=== PATIENT | female | born 1950 | race Caucasian/White ===

== ENCOUNTER → 2021-12-02 16:35 | Outpatient (CLI) | payer BC, SELFPAY ==
--- NOTE | ~2021-12-02 | MR_ITS ---
EXAMINATION: MR shoulder RT wo con DATE: 12/02/2021 17:17 INDICATION: Right shoulder pain TECHNIQUE: Magnetic resonance imaging (MRI) of the right shoulder was performed without intravenous c ontrast. Sequences included axial PD-weighted FS FSE, coronal oblique PD-weighted FS FSE, coronal obl ique T2-weighted FS FSE, sagittal PD-weighted FS FSE, and sagittal T1-weighted SE. COMPARISON: None. FINDINGS: Coracoacromial arch: The acromion undersurface is flat in morphology (type I). Large anterior subacromial spur with ossifi cation replacing the acromial side of the coracoacromial ligament. Moderate acromioclavicular osteoa rthritis with small inferiorly directed osteophytes at the lateral head of the clavicle which abut th e cephalad surface of the supraspinatus with effacement of the intervening fat plane. Rotator cuff: Mild supraspinatus and infraspinatus tendinopathy without tear. The teres minor tendon is normal. Mil d subscapularis tendinopathy without discrete tear. There is mild cystic change along the cephalad le sser tuberosity footplate of the subscapularis tendon. Normal rotator cuff muscle bulk and signal. Biceps tendon, glenoid labrum and glenohumeral cartilage: Long head of the biceps tendon is normal. There is a small tear at the 11:00 position of the posterio r glenoid labrum. Remainder of the labrum appears normal with small marginal osteophyte along the bas e of the posterior inferior labrum. Glenohumeral cartilage is normal. Fluid: Small glenohumeral joint effusion with proportional extension of a small amount of fluid along the lo ng head biceps tendon sheath. No loose osteochondral bodies. Moderate amount of fluid in the subacrom ial/subdeltoid bursa primarily anteriorly consistent with mild to moderate bursitis. Bones: Bone marrow signal is normal. No fracture or pathologic marrow replacing process. IMPRESSION: 1. Mild rotator cuff tendinopathy without discrete tear. 2. Small tear at the posterior superior glenoid labrum. 3. Large anterior subacromial spur with mild to moderate underlying subacromial/subdeltoid bursitis. 4. Moderate acromioclavicular arthritis. 5. Small glenohumeral joint effusion. Reviewed, dictated and finalized at location A. IMPRESSION: 1. Mild rotator cuff tendinopathy without discrete tear. 2. Small tear at the posterior superior glenoid labrum. 3. Large anterior subacromial spur with mild to moderate underlying subacromial /subdeltoid bursitis. 4. Moderate acromioclavicular arthritis. 5. Small glenohumeral joint effusion.
== END ==
PROVIDERS: PCP Family Medicine; Visit Provider Orthopaedic Surgery
DX: M25.411 Effusion, right shoulder (principal); M19.011 Primary osteoarthritis, right shoulder; S43.431A Superior glenoid labrum lesion of right shoulder, initial encounter; X58.XXXA Exposure to other specified factors, initial encounter
CPT/HCPCS: 73221

== ENCOUNTER 2022-01-14 00:30 | Day surgery (SDC) | payer BC, SELFPAY ==
[2022-01-10 13:20] VITALS: BMI 32.6
--- NOTE | 2022-01-10 13:29 | PC.NURSE ---
Report to the Outpatient Waiting Room, entrance under the green pavilion located off [facility], at time _1030 on date __01/14/22 . OR Time: 1230___. - You and your visitor will be asked to self-screen and do not enter if you have any COVID symptoms. - Only one visitor and NO children visitors are allowed at this time. - The patient visitor is requested to leave or wait in car when not with patient due to restrictions. - A mask is required within the hospital. Patients may have clear liquids (water, carbonated beverages, clear teas, apple juice) until 3 hours prior to surgery (0930 AM) with a maximum of 20 ounces. - No food from midnight until time of surgery - Infants may have breast milk until 4 hours before surgery, formula 6 hours prior to surgery. - Children will be allowed to drink immediately following surgery. If applicable, please bring a bottle or sippy cup to assist with drinking. Juice, water, soda, and popsicles are readily available. For infants on formula, please bring formula the day of surgery. Pacifiers are allowed. Take the following medications with a SIP of water the morning of surgery: N/A Medications to discontinue per physician N/A Date to take last dose Please no make-up, nail yi, hairspray, perfume, deodorant, or body powder the day of surgery. No jewelry (including any body piercings) or valuables the day of surgery, leave them at home. Please take a shower or bath the night before, or the morning of, surgery with an antibacterial soap. Wear comfortable, loose fitting clothing. Children are encouraged to wear pajamas. - Jewelry must be removed prior to entering the operating room. Rings and piercings that are not removed may be cut off. - The hospital will not accept responsibility for valuables. - Please leave all valuables, including medications, at home the day of surgery. If you are going home after surgery, a licensed driver starting gate must drive you home. - NO public transportation without another adult. - We recommend that an adult stay with you for 24 hours following discharge. - We also recommend that you do not drive, make important decision, drink alcoholic beverages, or take any drugs that were not prescribed by your health care provider for at least 24 hours after your discharge time. For Pediatric surgeries, we recommend two adults accompany the child home (only one inside the building at this time). Follow any additional instructions given to you from your surgeon. If you or anyone in your household have experienced Covid symptoms in the past week, please notify your surgeon or the nurse liaison at the phone number below for possible testing. Telephone instructions given to ____PT and asked if any additional questions and then verbalized understanding. Patient advised to call surgeon office or pre surgery nurse liaison [phone] if any additional questions.
--- NOTE | 2022-01-13 14:03 | WPDANESEPPF ---
Anes - Initial Pre Proc Eval Procedure: Operation Date: 01/14/22 12:30 Proposed Procedures p Arthroscopic Subacromial Decompression, Biceps Tenodesis and Possible Rotator Cuff Repair Right Shoulder - Jeff Gonzales MD Date/Time: 01/13/22 14:03 Surgeon: Jeff Gonzales MD Pre Op Diagnosis: Impingement Syndrome Rt Shoulder,Slap Tear Rt Shld Patient Data Age: 71 Gender: F Height: 1.7 m Weight: 94.54 kg Allergies Allergy/AdvReac Type Severity Reaction Status Date / Time No Known Allergies Allergy Unverified 01/14/22 10:34 Home Medications Medication Instructions Recorded Confirmed Type cyanocobalamin (vitamin B-12) 100 mcg subcut .every 21 days 01/03/22 01/14/22 History 1,000 mcg/mL injection kit estradiol cypionate 5 mg/mL 5 mg IM .every 21 days 01/03/22 01/14/22 History intramuscular oil (Depo-Estradiol) testosterone cypionate 100 mg/mL 25 mg IM ONCE 01/03/22 01/14/22 History intramuscular oil Patient hx anesthesia problems: none Family hx anesthesia problems: none Results Review: All pre-operative results and documents have been reviewed as part of the pre-operative evaluation. [facility] Surgical History Surgical History (Updated 01/13/22 @ 14:03 by Jarad Jordan DO) History of breast augmentation History of hysterectomy History of tonsillectomy Social History Social History Smoking status: Never smoker Second hand tobacco smoke exposure: No Alcohol intake: never Substance use: never Substance use type: does not use Living arrangements: with family Spiritual care concerns: No Anes - Eval Final PreProcedure Day of Procedure 01/13/22 14:03 Patient weight: obese Heart: regular rate and rhythm Lungs: clear to auscultation Airway: Mallampati scale class II Neurological: alert and oriented Last oral intake: >/= 8 hours ASA classification: II Emergent: no Anesthetic plan: proceed Anesthesia type and monitoring: general ETT and standard monitoring Results Review: All pre-operative results and documents have been reviewed as part of the pre-operative evaluation. Informed Consent: The patient's anesthetic plan and its attendant risks and benefits were discussed with the patient/family/POA. Questions were solicited and answers provided to the satisfaction of the patient/family/POA.
[2022-01-14] VITALS (9 sets, daily range): BP systolic 102–143; BP diastolic 64–87; PULSE 74–90; RESP 14–20; TEMP 36.3–36.5; O2SAT 94–100
[2022-01-14] MEDS: ACETAMINOPHEN 500 MG TABLET 1000 MG PO (10:43)
[2022-01-14] MEDS: LACTATED RINGERS 1,000 ML 30 ML IV CONT ×2 (10:55→15:50)
--- NOTE | 2022-01-14 12:02 | WPDANESPNB ---
Anes - Peripheral Nerve Block Date/Time: 01/14/22 12:02 I have discussed with the patient/family/POA the placement of a peripheral nerve block for post-operative pain management, including associated risks, benefits, complications, and side effects. Alternative methods of post-operative analgesia were detailed. Questions were solicited and answers provided to the satisfaction of the patient/family/POA. Time-Out: A pre-procedural Time-Out was completed immediately before starting the procedure and confirmed: Patient Identification, Site, Procedure, Patient Position and the Availability of Requisite Equipment. Clinical Indications: Acute post-operative pain management requested by the operative surgeon. Nerve Block Insertion Note Anes-nerve block: interscalene right Patient position: supine Skin prep: chlorhexidine Needle: 22 gauge, stimulating, insulated echogenic needle. Needle length: 50 mm Technique: ultrasound Injectate: bupivacaine 0.5% with epi 5 mcg/ml (30cc- no epi) Observations: tolerated well Complications: none Procedure start time:: 1322 Procedure end time:: 132
[2022-01-14] MEDS: KETOROLAC 15 MG/ML VIAL (*BKC) IV PUSH (12:07)
[2022-01-14] MEDS: ceFAZolin 2 GM/D5W 50 ML 2 GM/50 ML BAG IVPB (13:32)
[2022-01-14] MEDS: BUPIVACAINE/EPINEPHRINE 0.25% 50 ML VIAL 30 ML INFILTRATE (14:31)
--- NOTE | 2022-01-14 16:10 | W.PM.PROC2 ---
Procedure Note - Detailed Date of Procedure 01/14/22 Pre-op Diagnosis Impingement Syndrome Rt Shoulder,Slap Tear Rt Shld Post-op Diagnosis Other (1. Rotator cuff tear, partial. 2. Subacromial impingement 3. SLAP tear ) Procedure Performed Right shoulder 1. Arthroscopic rotator cuff repair 2. Arthroscopic subacromial decompression 3. Arthroscopic biceps tenodesis Surgeon Jeff Gonzales MD Anesthesia General and Regional ( interscalene block) Findings Partial upper border subscapularis tear, and biceps tenodesis repaired with swivel lock anchor. Low grade articular tear and bursal tear, repaired with Regeneten graft and anchors. Subacromial decompression. Description of Procedure Preoperative antibiotics were given. An interscalene block was administered in the preoperative area. The patient was bought brought to the operating room. A general anesthetic was administered. The patient was carefully positioned in the beach chair position. The head and neck were carefully positioned. The non operative extremity was also carefully positioned. The shoulder was prepped and draped in the usual sterile fashion. Examination was performed. Standard posterior and anterior arthroscopic portals were established. Inflow achieved with the arthroscopic pump using saline and epinephrine. The glenohumeral joint was carefully inspected. The articular cartilage appeared healthy. There was tearing of the upper border subscapularis which was partial-thickness but substantial enough that retraction of the upper tendon was occurring. This was tagged with a horizontal mattress suture for later repair. There was extensive degenerative tearing at the superior labrum. Biceps was tagged with a loop and tack suture. The suture ends were incorporated into a SwiveLock anchor and repaired near the articular margin at the upper border of the subscapularis biceps area. Posterior cuff appeared healthy. The capsule was normal with mild hyperemia. The articular side supraspinatus showed grade 1 fraying less than 15%. There was some subtle yellowing of the tendon suggesting early degeneration. Attention was turned to the bursal side. A complete bursectomy was performed. The bursa was quite thick. Also the bursal side supraspinatus was peeling off where opinion it was occurring and this flap of tissue posteriorly required resection. Overall thickness appeared less than 20% but was considered significant. The remaining tendon looked very good from the bursal side. The large anterolateral spur was treated with decompression using the arthroscopic bur. It was elected to repair the supraspinatus given involvement both on the articular and bursal side, and the findings of some early degeneration. Repair was accomplished with the Regeneten collagen implant using 2 peek bone anchors laterally and for RONALDO anchors into the tendon medially. The arthroscopic instruments were removed. The wounds were closed with 3-0 Monocryl subcuticular suture and steri strips. There were no complications. A sling was applied and the patient brought to the recovery room. Implants Regeneten collagen implant size medium. Two peek bone anchors. Four RONALDO tendon anchors. Arthrex SwiveLock 4.3 mm anchor. Estimated Blood Loss -20.0 Pathology None sent Complications No immediate complications Condition Stable Disposition PACU [facility] Billing Surgery - Charge Forward: Surgery Billing
== END 2022-01-14 18:05 | disposition home or self-care (01) ==
PROVIDERS: PCP Family Medicine; Visit Provider Orthopaedic Surgery
PROC: (CPT 29805; principal; 2022-01-14 12:30)
DX: M75.81 Other shoulder lesions, right shoulder (principal); M75.41 Impingement syndrome of right shoulder; M75.101 Unspecified rotator cuff tear or rupture of right shoulder, not specified as traumatic; G89.18 Other acute postprocedural pain; E66.9 Obesity, unspecified; Z68.33 Body mass index [BMI] 33.0-33.9, adult
CPT/HCPCS: 29827; 29828; 29826; 64415; A4565; A9270; C1713; J0330; J0690; J1100; J1885; J2250; J2370; J2405; J2704; J3010; J7120

== ENCOUNTER 2023-02-04 16:14 | Emergency (ER) | payer BC, SELFPAY ==
--- NOTE | ~2023-02-04 | XR_ITS ---
EXAMINATION: XR chest 2V Exam Date/Time: 02/04/2023 16:45 CDT HISTORY: chest pain, short of breath Comparison: None. RESULT: Lines, tubes, and devices: None. Lungs and pleura: Low volume, with crowding, particularly in the lateral view. Otherwise clear. Cardiomediastinal silhouette: Stable. Other: No acute osseous or upper abdominal finding. IMPRESSION: No acute cardiopulmonary process. Reviewed, dictated and finalized at location K.
--- NOTE | ~2023-02-04 | CT_ITS ---
EXAMINATION: CT abdomen pelvis w con DATE: 02/04/2023 17:50 INDICATION: Epigastric abdominal pain TECHNIQUE: Computed tomography (CT) of the abdomen and pelvis was performed with 100 mL Omnipaque-350 intravenous contrast. Automated exposure control and iterative reconstruction technique were employe d. The dose-length product was 1022.74 mGy-cm. COMPARISON: None. FINDINGS: Lower thorax: Bilateral intracapsular implant ruptures. Liver: Normal. Biliary/Gallbladder: Gallbladder is borderline dilated, with the suggestion of minimal surrounding in flammatory change. Common bile duct measures 8 mm. No obstructing stone or mass. Pancreas: No mass or duct dilation. Spleen: Normal. Adrenals:No mass. Kidneys: Left parapelvic cysts. No suspicious mass, obstructing stone, or hydronephrosis. GI tract: Mild distal esophageal and gastric wall edema. No small or large bowel dilation. Normal zuleika endix. Mesentery/Peritoneum: No ascites, mass, or free air. Retroperitoneum: No mass. Pelvis: Absent uterus. Normal bladder.. Soft Tissues: Soft tissues and body wall unremarkable. Bones: No acute osseous finding. IMPRESSION: Bilateral intracapsular breast implant ruptures. Mild esophagitis/gastritis. Borderline gallbladder and extrahepatic biliary duct dilation, with the suggestion of early gallbladd er inflammation, which may represent early/mild cholecystitis in the appropriate clinical context. Reviewed, dictated and finalized at location K. IMPRESSION: Bilateral intracapsular breast implant ruptures. Mild esophagitis/gastritis. Borderline gallbladder and extrahepatic biliary duct dilation, with the suggest ion of early gallbladder inflammation, which may represent early/mild cholecyst itis in the appropriate clinical context.
--- NOTE | 2023-02-04 16:17 | ECG_ITS ---
Measurements Intervals [place] Rate: 85 P: 51 MN: 197 QRS: -1 QRSD: 96 T: 38 QT: 347 QTc: 413 Interpretive Statements SINUS RHYTHM INCOMPLETE RIGHT BUNDLE BRANCH BLOCK DELAYED PRECORDIAL R/S TRANSITION BORDERLINE ECG NO PREVIOUS ECG AVAILABLE FOR COMPARISON Electronically Signed On 02-04-2023 16:37:27 CDT by Pato Wen D.O.
[2023-02-04 16:29] LABS: Basophils Percent Auto 0.3 % (0.2-1.2); Eosinophils Absolute Auto 0.2 K/mm3 (0-0.3); Eosinophils Percent Auto 2.3 % (0-4.4); Hemoglobin 13.8 g/dL (12.0-15.0); Immature Granulocyte Absolute 0.01 K/mm3 (0.00-0.031); Immature Granulocyte Percent A 0.1 % (0-0.5); Lymphocytes Absolute Auto 1.08 K/mm3 (0.9-3.2); Lymphocytes Percent Auto 13.9 % (18.3-44.2); Mean Corpuscular HGB Conc 33.7 g/dl (32-36); Mean Corpuscular Hemoglobin 30.3 pg (26-34); Mean Corpuscular Volume 89.9 fl (80-100); Mean Platelet Volume 8.9 fl (7.4-10.4); Monocytes Absolute Auto 0.7 K/mm3 (0.1-0.6); Monocytes Percent Auto 8.4 % (2.6-8.5); Neutrophils Absolute Auto 5.8 K/mm3 (1.3-6.7); Platelet Count Result 176 k/mm3 (150-375); Red Blood Count 4.56 M/mm3 (4.2-5.4); Red Cell Distribution Width 12.8 % (11.5-14.5); White Blood Count 7.8 K/mm3 (4.5-10.0)
[2023-02-04 16:39] LABS: Alanine Aminotransferase 88 U/L (6-35); Albumin Level 4.3 g/dL (3.5-5.1); Alkaline Phosphatase 106 U/L (38-126); Anion Gap 6 mmol/L (8-16); Aspartate Amino Transferase 206 U/L (14-36); Bilirubin,Total 0.8 mg/dL (0.2-1.3); Blood Urea Nitrogen 21 mg/dL (7-17); Calcium 9.2 mg/dL (8.4-10.2); Carbon Dioxide 23 mmol/L (22-30); Chloride 107 mmol/L (98-107); Estimated CRCL calculation 56 ml/min; Estimated Glomerular Filt Rate 55; Glucose 103 mg/dL (65-110); Lipase 145 U/L (23-300); Potassium 4.4 mmol/L (3.4-5.0); Sodium 136 mmol/L (137-145)
[2023-02-04 16:45] VITALS: BP 142/76; PULSE 80; RESP 20; TEMP 36.3; O2SAT 97
[2023-02-04 16:45] LABS: INR 0.9; Partial Thromboplastin Time 24.5 SECONDS (22.3-36.8); Prothrombin Time 12.7 Seconds (11.1-14.7)
[2023-02-04 16:50] LABS: Troponin I < 0.012 ng/mL (0.000-0.034)
--- NOTE | 2023-02-04 16:50 | PC.NURSE ---
pt taken for xray at this time
--- NOTE | 2023-02-04 16:52 | PC.NURSE ---
pt returned to room 1 at this time
--- NOTE | 2023-02-04 16:58 | ED.CHESTPAIN ---
HPI - Chest Pain General Chief Complaint: Chest Pain Stated Complaint: chest pain Time Seen by Provider: 02/04/23 16:33 History of Present Illness HPI narrative: This is a 72-year-old female with no significant past medical history, who presents the emergency department complaining of nonradiating substernal and epigastric chest pressure rated 7/10 for the past 5 days. Patient denies recent trauma. Her pain is exacerbated with direct palpation without obvious alleviating factors. Patient states she has been under significant stress for the past few weeks to the recent of her spouse. She has no other acute complaints today. Related Data Home Medications Medication Instructions Recorded Confirmed cyanocobalamin (vitamin B-12) 100 mcg subcut .every 21 days 01/03/22 06/17/22 1,000 mcg/mL injection kit estradiol cypionate 5 mg/mL 5 mg IM .every 21 days 01/03/22 06/17/22 intramuscular oil (Depo-Estradiol) testosterone cypionate 100 mg/mL 25 mg IM ONCE 01/03/22 06/17/22 intramuscular oil Allergies Allergy/AdvReac Type Severity Reaction Status Date / Time No Known Allergies Allergy Verified 06/17/22 09:59 Review of Systems Review of Systems: CONSTITUTIONAL: Denies fever, chills, or sweats. CARDIOVASCULAR: Substernal and epigastric chest pressure denies palpitations, or edema. RESPIRATORY: Denies cough or dyspnea. GASTROINTESTINAL: Denies abdominal pain, nausea, vomiting, or diarrhea. GENITOURINARY: Denies dysuria or hematuria. SKIN: Denies rash or itching. MUSCULOSKELETAL: Denies back pain, joint pain, or myalgia. NEUROLOGIC: Denies headache, numbness, dizziness, or weakness. PSYCHIATRIC: Denies anxiety or depression. [facility] Surgical History Surgical History H/O repair of right rotator cuff (~01/14/22) SAD/BICEP TENODESIS History of breast augmentation History of hysterectomy History of tonsillectomy Social History Social History Smoking status: Never smoker Second hand tobacco smoke exposure: No Alcohol intake: never Substance use: never Substance use type: does not use Lack of Transportation: No Lack of Food: Never True Current Housing: I Have Housing Concerned About Future Housing: No Difficulty Paying Gas/Electric Bills: No Difficulty Paying for Meds: No Currently Unemployed: No Education: Grade School Difficulty w/ Childcare or Family Care: No Living arrangements: with family Gender identity (if verbalized by the patient): Female Sexual Orientation (if Verbalized by the Patient): Straight or Heterosexual Spiritual care concerns: No Exam Narrative: GENERAL: Well-developed, well-nourished, and in no acute distress. HEAD: Normocephalic, atraumatic. EYES: PERRLA and EOMI. NECK: Supple. No adenopathy or masses. No carotid bruits or JVD CHEST: Clear to auscultation. No respiratory distress. No wheezes rales or rhonchi HEART: Regular rate and rhythm. No murmur heard. Normal peripheral pulses. ABDOMEN: Soft, tender to palpation in the epigastric region, without rebound or guarding, nondistended, normal active bowel sounds. EXTREMITIES: Normal range of motion. No edema. SKIN: Warm, dry, no rash. NEURO: Alert and oriented x3. Moving all 4 limbs purposefully. PSYCH: Normal mood and affect. Course Course Emergency Course: 17:01 - Initial troponin negative. EKG not concerning for ischemia. Heart score 3. Considering the patient's significant since recent stress, will obtain a CT abdomen pelvis to rule out bowel injury. I have increased concern for peptic ulcer disease versus gastritis. 18:44 - Repeat troponin negative. CBC unremarkable. Chemistries demonstrate AST/ALT elevation of 208/88. On repeat evaluation after GI cocktail and antacid medications, the patient states her pain is significantly improved. CT abdomen pelvis demonstrates
[2023-02-04] MEDS: BELLADONNA ALK/PHENOB ELIX 10 ML, MAG HYDROX/ALUMINUM HYD/SIMETH 30 ML, LIDOCAINE HCL 2... PO (17:11)
[2023-02-04] MEDS: ONDANSETRON INJ 4 MG/2 ML VIAL IV PUSH (17:11)
[2023-02-04] MEDS: FAMOTIDINE 20 MG/2 ML VIAL IV PUSH (17:12)
[2023-02-04] MEDS: MORPHINE SULFATE (*CRX) 4 MG/ML INJ IV PUSH (17:12)
[2023-02-04 17:15] VITALS: PULSE 85; RESP 13; O2SAT 99
--- NOTE | 2023-02-04 17:36 | PC.NURSE ---
pt taken to CT at this time
--- NOTE | 2023-02-04 17:51 | PC.NURSE ---
pt returned to room [address] at this time
[2023-02-04 17:52] VITALS: PULSE 81; RESP 12; O2SAT 98
[2023-02-04 18:00] VITALS: PULSE 80; RESP 18; O2SAT 93
[2023-02-04 18:15] VITALS: PULSE 79; RESP 14; O2SAT 98
[2023-02-04 18:59] VITALS: BP 142/76; PULSE 76; RESP 18; O2SAT 100
== END 2023-02-04 19:01 | disposition home or self-care (01) ==
PROVIDERS: General Practice; Emergency Provider Preventive Medicine Aerospace Medicine; PCP Family Medicine
DX: R07.89 Other chest pain (principal); K29.70 Gastritis, unspecified, without bleeding; Z90.710 Acquired absence of both cervix and uterus; I45.10 Unspecified right bundle-branch block; R93.2 Abnormal findings on diagnostic imaging of liver and biliary tract; T85.898A Other specified complication of other internal prosthetic devices, implants and grafts, initial encounter; Y84.8 Other medical procedures as the cause of abnormal reaction of the patient, or of later complication, without mention of misadventure at the time of the procedure
CPT/HCPCS: 36415; 71046; 74177; 80053; 83690; 84484; 85025; 85610; 85730; 93005; 96374; 96375; 99284; A9270; J2270; J2405; Q9967

== ENCOUNTER 2023-11-03 13:25 | Outpatient (CLI) | payer BC, SELFPAY | END 2023-11-03 13:26 | disposition home or self-care (01) | LOC: ANHIMG 13:28 | PROVIDERS: PCP Family Medicine; Visit Provider Orthopaedic Surgery | DX: M25.561 Pain in right knee (principal) | CPT/HCPCS: 73564 ==

== ENCOUNTER 2024-11-14 11:48 | Outpatient (CLI) | payer BC, SELFPAY ==
--- NOTE | ~2024-11-14 | MR_ITS ---
MRI of the left shoulder Technique: Axial proton-density fat-sat images, coronal proton density fat-sat and T2 fat-sat images, and sagittal T1-weighted and T2 fat-sat images were acquired. Clinical History: Other joint disorder Findings: There is moderate to advanced AC joint degenerative change, with marrow edema about the drew nt space and bony productive change of the distal clavicle. Coracoclavicular, coracoacromial, and cor acohumeral ligaments appear intact. Supraspinatus and infraspinatus tendons are intact with moderate tendinosis, but no partial or full-t hickness tear. Subscapularis tendon intact. Questionable prior biceps tenodesis. There is superior labral tear without definite anterior or posterior extension. Inferior glenohumeral ligament is intact. No significant effusion or degenerative change of the gleno humeral joint. No fluid distention of the subacromial/subdeltoid bursa. No muscle atrophy or edema. Impression: Advanced AC joint degenerative change. Superior labral tear. Possible prior biceps tenodesis. Correlate with any relevant clinical/surgical history. Multiple rotator cuff tendinosis. Reviewed, dictated and finalized at [facility]. Impression: Advanced AC joint degenerative change. Superior labral tear. Possible prior biceps tenodesis. Correlate with any relevant clinical/surgical history. Multiple rotator cuff tendinosis.
== END 2024-11-14 11:49 | disposition home or self-care (01) ==
LOC: MICIMG 11:49
PROVIDERS: PCP Physician Assistant Surgical; Visit Provider Physician Assistant Surgical
DX: M25.812 Other specified joint disorders, left shoulder (principal); M19.012 Primary osteoarthritis, left shoulder
CPT/HCPCS: 73221